=== PATIENT | male | born 1995 | race Caucasian/White ===

== ENCOUNTER 2018-11-26 04:32 | Emergency (ER) | payer OTHER ==
[~2018-11-26] VITALS: Ht 175.3 cm; Wt 68.0 kg
[2018-11-26 05:19] LABS: ABSOLUTE EOSINOPHILS 0.1 thou/uL (0.0-0.7); ABSOLUTE LYMPHOCYTES 1.8 thou/uL (0.8-5.3); ABSOLUTE MONOCYTES 0.9 thou/uL (0.0-1.2); ABSOLUTE NEUTROPHILS 7.9 thou/uL (1.6-8.1); BASOPHILS 0.2 %; HEMATOCRIT 41.4 % (42.0-52.0); HEMOGLOBIN 14.5 gm/dL (14.0-18.0); LYMPHOCYTES 17.3 %; MCH 31.2 pg (26.0-34.0); MCV 89.4 fL (80.0-100.0); MPV 9.8 fl. (7.2-11.1); NUCLEATED RBCS 0 /100WBC; PLATELET COUNT* 184 thou/uL (150-400); POLYS 73.5 %; RBC 4.64 mil/uL (4.50-6.00); RDW-CV 12.9 % (10.5-14.5); WBC 10.7 thou/uL (4.0-11.0)
[2018-11-26 05:35] LABS: CALCIUM 8.8 mg/dL (8.5-10.1); CREATININE 1.1 mg/dL (0.6-1.3); POTASSIUM 3.7 mmol/L (3.5-5.1)
[2018-11-26 05:44] LABS: TOTAL BILIRUBIN 0.3 mg/dL (<0.1-1.0); TOTAL PROTEIN 7.5 g/dL (6.4-8.2)
[2018-11-26 06:37] LABS: ESR (SEDRATE) 2 mm/hr (0-15)
[2018-11-26] MEDS ORDERED: NORCO 7.5-3251 EACH PO (07:26)
[2018-11-26] MEDS ORDERED: CLEOCIN HCL150 MG PO (07:26)
[2018-11-26 07:46] VITALS: BP 96/49
== END 2018-11-26 07:47 | disposition home or self-care (01) ==
LOC: M.ERS 04:32
PROVIDERS: Emergency Medicine
DX: L03.115 Cellulitis of right lower limb (principal); L97.818 Non-pressure chronic ulcer of other part of right lower leg with other specified severity; Z88.1 Allergy status to other antibiotic agents